=== PATIENT | male | born 1980 | race Two or more races ===

== ENCOUNTER 2019-06-28 17:57 | Emergency (ER) | payer OTHER ==
[~2019-06-28] VITALS: Ht 152.4 cm; Wt 131.5 kg
[2019-06-28] MEDS ORDERED: KETO10TA2 PO (19:31)
== END 2019-06-28 19:56 | disposition home or self-care (01) ==
LOC: ER 17:57
DX: M94.0 Chondrocostal junction syndrome [Tietze] (principal)